=== PATIENT | female | born 1960 | race Caucasian/White ===

== ENCOUNTER 2016-09-24 13:38 | Emergency (ER) | payer OTHER ==
[~2016-09-24] VITALS: Ht 167.6 cm; Wt 78.5 kg
[~2016-09-24 13:38] MED LIST: ALBUTEROL0.09 MG/A1 INH; ASPIR 8181 MG PO; ATORVASTATIN CA10 MG PO; GLYBURIDE2.5 MG PO; JANUMET 1000 MG1 TAB PO; LOSARTAN POTASS50 MG PO; NORVASC 5MG TAB5 MG PO; PANTOPRAZOLE SO40 MG PO; PREDNISONE10 MG PO; ROBITUSSIN W/CO10 ML PO; VITAMIN D1000 IU PO; ZITHROMAX Z-PA250 M1 PO
--- NOTE | 2016-09-24 14:41 | ED DYSPNEA/ASTHMA COMPLAINT ---
History of Present Illness General Chief Complaint: Upper Respiratory Sx/Fever Stated Complaint: URI Source: patient Exam Limitations: no limitations Vital Signs & Intake/Output Vital Signs & Intake/Output Vital Signs Date Time Temp Pulse Resp B/P Pulse O2 O2 Flow FiO2 Ox Delivery Rate 09/24 1454 92 09/24 1343 97.6 111 16 154/93 94 Room Air Allergies Coded Allergies: NO KNOWN ALLERGIES (08/20/13) Reconcile Medications Albuterol Sulfate (Albuterol Sulfate Hfa) 90 MCG HFA.AER.AD 2 PUFF INH Q4-6 PRN PRN SHORTNESS OF BREATH 90 MCG PER PUFF Amlodipine (Norvasc 5MG Tab) 5 MG TABLET 1 TAB PO DAILY BP (Reported) Aspirin (Ecotrin) 81 MG TABLET.DR 1 TAB PO DAILY HEART HEALTH (Reported) Atorvastatin Calcium (Lipitor) 10 MG TABLET 1 TAB PO DAILY CHOLESTEROL ( Reported) Azithromycin (Zithromax Z-Ubaldo) 250 MG CAP 1 DP PO AD ANTIBIOTIC, INFECTION 2 the first day followed by 1 for days 2-5 Cholecalciferol (Vitamin D3) (Unknown Strength) TABLET (Unknown Dose) PO DAILY SUPPLEMENT (Reported) Glyburide 5 MG TABLET 2 TAB PO BID DIABETES (Reported) Hydrocodone/Chlorphen P-Stirex (Tussionex Pennkinetic Susp) 10 MG-8 MG/5 ML FORD.ER.12H 5 ML PO DAILY PRN COUGH Levofloxacin (Levaquin) 500 MG TABLET 1 TAB PO DAILY bronchitis Losartan Potassium 50 MG TABLET 1 TAB PO DAILY BP (Reported) Metformin Hydrochloride/Sarai (Janumet 1000 MG-50 MG) 1 TAB TAB 1 TAB PO BID DIABETES (Reported) Methylprednisolone. (Medrol) 4 MG TAB.DS.PK 1 DP PO AD bronchitis 6 on day 1 then reduce by one tablet daily until gone Pantoprazole Sodium 40 MG TABLET.DR 1 TAB PO DAILY AC GERD (Reported) Prednisone 10 MG TABLET 10 TAB PO DAILY COUGH 4 TABS A DAY X 3 DAYS 3 TABS A DAY X 3 DAYS 2 TABS A DAY X 3 DAYS 1 TABS A DAY X 3 DAYS Robitussin AC (Guaifenesin-Codeine Syrup) 200 MG-20 MG/10 ML LIQUID 5 ML PO Q6 COUGH Triage Note: 56 Y/O FEMALE C/O CONTINUED COUGH X 3-4 WEEKS; NOR RELIEF DESPITE BEING ON 2 Z-PACKS - HAS TWO MORE DAYS OF CURRENT ANTIBIOTIC. STATES SHE COUGHS WITH "CLEAR" MUCOUS. Triage Nurses Notes Reviewed? yes HPI: This patient is a 56 year old female who presented to the emergency department for cough and shortness of breath x2 weeks. She reported that she has been seeing her primary ambulatory care coordinator who has put her on 2 z-packs with no relief. She reported that the breathing seems to be getting worse. She reported chills. No fevers, chest pain, nausea, vomiting. She did report abdominal soreness related to coughing. Intermittment sputum production. History of bronchitis. (SAMRA HERNANDEZ PA-C) Past History Travel History Traveled to [place] past 21 day No Medical History Any Pertinent Medical History? see below for history Neurological: NONE EENT: NONE Cardiovascular: hypertension, HIGH CHOLESTEROL Respiratory: NONE Gastrointestinal: NONE Hepatic: NONE Renal: NONE Musculoskeletal: NONE Psychiatric: NONE Endocrine: diabetes Surgical History Surgical History: non-contributory Psychosocial History What is your primary language Luxembourgish Tobacco Use: Current Not Daily Family History Hx Contributory? No (SAMRA HERNANDEZ PA-C) Review of Systems Review of Systems Constitutional: Reports: see HPI. EENTM: Reports: no symptoms. Respiratory: Reports: see HPI. Cardiovascular: Reports: no symptoms. GI: Reports: see HPI. Genitourinary: Reports: no symptoms. Musculoskeletal: Reports: no symptoms. Skin: Reports: no symptoms. Neurological/Psychological: Reports: no symptoms. All Other Systems: Reviewed and Negative (SAMRA HERNANDEZ PA-C) Physical Exam Physical Exam Respiratory: chest non-tender, no respiratory distress, expiratory wheezes and rhonchi in all lung nguyen. no rales. no diminished breath sounds Comments: Well-developed well-nourished person in no acute distress HEENT: Normal EENT exam, head normocephalic, moist mucous membranes Pupils equally round and reactive to light. Neck: Supple, no lymphadenopathy Back: Normal gait. Normal inspection Cardiovascular: Regular rate and rhythm with no murmurs, rubs, or gallops Respiratory: Chest nontender. Expiratory wheezes and rhonchi heard throughout all lung nguyen. No rales or diminished breath sounds. No stridor Extremity: Normal and equal pulses. Neuro: Alert oriented x3, cranial nerves II through XII grossly intact. Skin: No appreciable rash on exposed skin, skin is warm and dry. Psych: Mood and affect is normal Core Measures ACS in differential dx? Yes Severe Sepsis Present: No Septic Shock Present: No (MARY CHRISTIANSON,SAMRA) Progress Differential Diagnosis: asthma, AMI, bronchitis, costochondritis, CHF, COPD, musculoskeletal pain, pericarditis, pulmonary embolism, pneumonia, unstable angina Plan of Care: Orders Procedure Date/time Status XRY-CHEST XRAY, PA AND LATERAL 09/24 1342 Active Diagnostic Imaging: Viewed by Me: Radiology Read. Discussed w/RAD: Radiology Read. CXR Impression: PATIENT: NONA WIN PRESENT AGE: 56 PATIENT ACCOUNT NO: [id number] : 62 LOCATION: [facility] ORDERING PHYSICIAN: MALIA CHACON MD SERVICE DATE: 09/24/16 EXAM TYPE: RAD - XRY-CHEST XRAY , PA AND LATERAL EXAMINATION: XR CHEST CLINICAL INFORMATION: Cough for 3 weeks. Assess for pneumonia. COMPARISON: There are no recent prior studies for comparison. A chest x-ray 07/29/2009 was reviewed. TECHNIQUE: PA and lateral views of the chest were obtained. FINDINGS: The lung nguyen are symmetrically well expanded. Persistent linear opacities the bases are most consistent with atelectasis. The cardiac silhouette is normal. There are no pleural effusions or pneumothorax. The central pulmonary vasculature is normal. The hilar regions appear normal. The study redemonstrates the dextroscoliosis in the thoracic spine and there are mild multilevel degenerative changes. IMPRESSION: 1. There are no acute cardiopulmonary findings. DICTATED BY: CAROL ANN HINDS MD DATE/TIME DICTATED:09/24/161434 MECHANICAL DESIGN DRAFTER:JULIAN DATE/TIME TRANSCRIBED:1434 CONFIDENTIAL, DO NOT COPY WITHOUT APPROPRIATE AUTHORIZATION. < Electronically signed in Other Vendor System> SIGNED BY: CAROL ANN HINDS MD 1501 Initial ED EKG: none (MARY CHRISTIANSON,SAMRA) Departure Departure Disposition: HOME OR SELF CARE Condition: Stable Clinical Impression Primary Impression: Bronchitis Referrals: MOHAMUD HART (PCP/Family) Additional Instructions: Take antibiotic as prescribed. Take Medrol Dosepak as directed. Rest. Take cough medication as prescribed. Follow-up with your primary care physician. Return for any worsening symptoms or concerns. Departure Forms: Customer Survey General Discharge Information Prescriptions: Current Visit Scripts Methylprednisolone. (Medrol) 1 DP PO AD #1 DP 6 on day 1 then reduce by one tablet daily until gone Levofloxacin (Levaquin) 1 TAB PO DAILY #10 TAB Hydrocodone/Chlorphen P-Stirex (Tussionex Pennkinetic Susp) 5 ML PO DAILY PRN COUGH #50 ML (SAMRA HERNANDEZ PA-C) PA/DRY PLACER MACHINE OPERATOR Co-Sign Statement Statement: ED Attending supervision documentation- [] I saw and evaluated the patient. I have also reviewed all the pertinent lab results and diagnostic results. I agree with the findings and the plan of care as documented in the PA's/DRY PLACER MACHINE OPERATOR's documentation. [X] I have reviewed the ED Record and agree with the PA's/DRY PLACER MACHINE OPERATOR's documentation. [] Additions or exceptions (if any) to the PAs/DRY PLACER MACHINE OPERATOR's note and plan are summarized below: [] (INES RANDOLPH,MALIA) Critical Care Note Critical Care Note Critical Care Time: non-applicable (SAMRA HERNANDEZ PA-C)
--- NOTE | 2016-09-24 15:01 | RADIOLOGY REPORT ---
EXAMINATION: XR CHEST CLINICAL INFORMATION: Cough for 3 weeks. Assess for pneumonia. COMPARISON: There are no recent prior studies for comparison. A chest x-ray 07/29/2009 was reviewed. TECHNIQUE: PA and lateral views of the chest were obtained. FINDINGS: The lung nguyen are symmetrically well expanded. Persistent linear opacities the bases are most consistent with atelectasis. The cardiac silhouette is normal. There are no pleural effusions or pneumothorax. The central pulmonary vasculature is normal. The hilar regions appear normal. The study redemonstrates the dextroscoliosis in the thoracic spine and there are mild multilevel degenerative changes. IMPRESSION: 1. There are no acute cardiopulmonary findings.
[2016-09-24] MEDS ORDERED: LEVAQUIN500 M1 PO (15:21)
[2016-09-24] MEDS ORDERED: TUSSIONEX PENN115 ML PO (15:21)
[2016-09-24] MEDS ORDERED: MEDROL4 M2 PO (15:21)
[2016-09-24 15:27] VITALS: BP 136/84
== END 2016-09-24 15:28 ==
LOC: ERH 13:38
DX: J40 Bronchitis, not specified as acute or chronic (principal); Z72.0 Tobacco use
CPT/HCPCS: 1263; 96372; J2930